=== PATIENT | female | born 1945 | race Caucasian/White ===

== ENCOUNTER 2025-07-31 09:11 | Outpatient (CLI) | payer MEDICARE ==
[2025-07-31 09:49] LABS: Estimated GFR - POC 74.0
[2025-07-31] MEDS ORDERED: Iopamidol 370 76% 100 ML VIAL ONE (10:56)
== END 2025-07-31 09:12 | disposition home or self-care (01) ==
LOC: CT 09:11
PROVIDERS: ATTEND Nurse Practitioner Family
DX: R31.9 Hematuria, unspecified (principal); K86.2 Cyst of pancreas; K80.20 Calculus of gallbladder without cholecystitis without obstruction; K57.30 Diverticulosis of large intestine without perforation or abscess without bleeding; K59.00 Constipation, unspecified; R91.1 Solitary pulmonary nodule
CPT/HCPCS: 36415; 74178; 82565; Q9967